=== PATIENT | female | born 1985 | race Caucasian/White ===

== ENCOUNTER → 2019-07-18 | Outpatient (CLI) | payer BC ==
[~2019-07-18] MED LIST: AMOXICILLIN 50500 MG PO; ATENOLOL25 MG PO; MOTRIN 600600 MG/TAB PO; PAZEO2.5 ML OP; PERCOCET 325 MG1 TA2 PO; PNV-SELECT1 TAB; VOTRIENT200 MG OS
== END ==
LOC: COL.RAD 12:35
DX: G43.109 Migraine with aura, not intractable, without status migrainosus (principal); S09.90XA Unspecified injury of head, initial encounter
CPT/HCPCS: A9585